=== PATIENT | male | born 1985 | race Caucasian/White ===

== ENCOUNTER 2025-01-31 02:59 | Emergency (ER) | payer BC ==
[~2025-01-31] VITALS: Ht 167.6 cm; Wt 83.9 kg
[2025-01-31 03:07] VITALS: TEMP 98.4
[2025-01-31 03:30] VITALS: PULSE 68; RESP 12
[2025-01-31 03:43] VITALS: BP 125/79; PULSE 75; RESP 14; O2SAT 97
== END 2025-01-31 03:52 | disposition home or self-care (01) ==
LOC: ER 03:09
DX: R00.0 Tachycardia, unspecified (principal)
CPT/HCPCS: 71045; 93005; 99283